=== PATIENT | female | born 1975 ===

== ENCOUNTER 2016-11-30 10:45 | Day surgery (SDC) | payer MEDICAID ==
[2016-11-23 10:06] VITALS: BMI 22.7
[2016-11-30 11:32] VITALS: O2SAT 100
[2016-11-30] MEDS ORDERED: Lactated Ringer's 1,000 ML IV ONE (12:40)
[2016-11-30] MEDS ORDERED: Bupivacaine 0.5%/Epi 1:200,000 (10 ML SOL) ONE (13:38)
[2016-11-30] MEDS ORDERED: ceFAZolin IV 1 gm in Dextrose 2 GM/100 ML BAG IVPB ONE (13:38)
[2016-11-30] MEDS ORDERED: Lidocaine 2% Inj (20ml) ONE (13:39)
[2016-11-30] MEDS ORDERED: Midazolam 2 MG/2 ML VIAL ONE (13:45)
[2016-11-30] MEDS ORDERED: Propofol 10 mg/ml Inj (20 ML) ONE (13:45)
[2016-11-30] MEDS ORDERED: HYDROmorphone 0.5 mg/0.5 ml ISec IVP PRN (13:54)
--- NOTE | 2016-11-30 14:02 | PCM.SURG1 ---
Surgeon's Initial Post Op Note - Surgeon's Notes Surgeon: Dr Juarez Business Loan Processor: Makenzie Desouza MS3 Pre-Operative Diagnosis: fibroadenoma Operative Findings: see report Post-Operative Diagnosis: as above Operation Performed: excision of right breast fibroadenoma Specimen/Specimens Removed: right breast mass Estimated Blood Loss: EBL {In ML}: 10 Blood Products Given: N/A Drains Used: No Drains Post-Op Condition: Good Date of Surgery/Procedure: 11/30/16 Time of Surgery/Procedure: 14:02
[2016-11-30] MEDS ORDERED: Oxycodone/Acetaminophen 5/325 mg Tab PO PRN (14:45)
[2016-11-30 15:47] VITALS: BP 118/70; PULSE 70; RESP 18; TEMP 98
--- NOTE | 2016-12-05 03:18 | OP ---
PROCEDURE DATE: 11/30/2016 PREOPERATIVE DIAGNOSIS: Right breast fibroadenoma. POSTOPERATIVE DIAGNOSIS: Right breast fibroadenoma. PROCEDURE: Excision of the right breast fibroadenoma. SURGEON: Dr. Laureano Juarez AIR CONDITIONING MANAGER: AMEE Hudson ANESTHESIA: Local anesthesia plus sedation. ESTIMATED BLOOD LOSS: Around 10 mL DRAINS: None in pathology. PATHOLOGY: The fibroadenoma was sent for pathology. COMPLICATIONS: None. INTRAOPERATIVE FINDINGS: The patient had approximately 2 x 2 cm fibroadenoma of the right breast. On intraoperative step, this 41-year-old female, who was diagnosed with right breast fibroadenoma. DESCRIPTION OF PROCEDURE: The patient was consented for the excision of the fibroadenoma, brought to the OR, placed upon operating table, after induction of anesthesia, the right breast was prepped and draped in usual sterile fashion. The fibroadenoma was 2 x 2 cm size and local anesthesia was injected. Upper and lower flaps were created and fibroadenoma was completely excised with underlying normal surrounding breast tissue and it was sent to the table for the pathology. After proper hemostasis, the wound was closed in 2 layers, the subcu with a 2-0 Vicryl, skin with a 4-0 Monocryl and dry sterile dressing was applied. The patient tolerated the procedure well. Count of the instruments was correct. There was no apparent complications. Laureano Juarez MD
== END 2016-11-30 15:58 | disposition home or self-care (01) ==
LOC: C.SDS 10:45
PROVIDERS: ATTEND Surgery Surgical Critical Care
DX: D24.1 Benign neoplasm of right breast (principal)
CPT/HCPCS: 19120; 88307; J0690; J2250; J2704; J3010; J7120